=== PATIENT | male | born 1950 | race Caucasian/White ===

== ENCOUNTER 2020-11-15 23:01 | Emergency (ER) | payer MEDICARE ==
[2020-11-16] MEDS ORDERED: BACTRIM DS1 TAB PO (00:51)
[2020-11-16 01:00] LABS: HEMATOCRIT 37.7 % (39.0-50.0); IMMATURE GRANULOCYTES 0.4 % (0.0-5.0); MEAN CELL VOLUME 87.3 fL CALC (80.0-100.0); MEAN CORPUSCULAR HGB 27.8 pG CALC (26.0-32.0); MEAN CORPUSCULAR HGB CONC 31.8 g/dL CAL (32.0-36.0); NEUT# 6.29 thou/uL (1.82-7.42); RED BLOOD COUNT 4.32 mill/uL (4.70-6.10); RED CELL DISTRI WIDTH 14.6 % (11.5-15.5)
[2020-11-16 01:20] LABS: ALBUMIN 4.3 g/dL (3.2-5.0); ALKALINE PHOSPHATASE 262 u/l (38-126); ANION GAP 15 (6-22 (CALC)); BILIRUBIN, TOTAL 0.7 mg/dL (0.0-1.4); BUN 9 mg/dL (8-23); BUN/CREATININE RATIO 13 (12-20 (CALC)); CARBON DIOXIDE 27 mmol/l (22-30); CHLORIDE 95 mmol/l (95-108); CREATININE 0.7 mg/dL (0.7-1.3); GFR > 60 ML/MIN (>=60 (CALC)); GFR FOR AFR.AMER. > 60 ML/MIN (>=60 (CALC)); POTASSIUM 4.5 mmol/l (3.5-5.1); SGOT/AST 48 u/l (19-48); SODIUM 131 mmol/l (137-146); TOTAL PROTEIN 7.6 g/dL (6.3-8.2)
[2020-11-16 03:24] VITALS: BP 118/62
--- NOTE | 2020-11-17 10:05 | NUR ---
Preliminary blood culture results of 1/4 bottles growing gram positive cocci called to Dr Martinez. Probable contaminant. No new orders at this time. Will follow up with final results tomorrow.
--- NOTE | 2020-11-20 13:33 | NUR ---
FINAL BLOOD CULTURE RESULTS CALLED TO . / VIALS GROWING STAPH EPI. NO TREATMENT NEEDED.
== END 2020-11-16 03:37 | disposition home or self-care (01) ==
LOC: ED 23:01
PROVIDERS: Emergency Medicine
PROC: 0H96XZZ Drainage of Back Skin, External Approach (ICD-10-PCS; principal; 2020-11-16)
DX: L02.212 Cutaneous abscess of back [any part, except buttock and flank] (principal); I10 Essential (primary) hypertension; Z87.820 Personal history of traumatic brain injury

== ENCOUNTER 2021-12-04 07:03 | Observation (INO) | payer MEDICARE ==
[~2021-12-04] VITALS: Ht 182.9 cm; Wt 132.0 kg
[2021-12-04] VITALS (27 sets, daily range): BP systolic 62–148; BP diastolic 36–69
[~2021-12-04 07:03] MED LIST: ASPIRIN81 MG PO; BACTRIM DS1 TAB PO; FUROSEMIDE20 MG PO; KEFLEX500 MG PO; LEVOTHYROXIN88 MC1 PO; LIPITOR20 M1 PO; LISINOPRIL10 MG PO; METFORMIN500 M2 PO; METOPROL TAR25 MG PO; MIRTAZAPINE15 MG PO; NEURONTIN400 MG PO; QUETIAPINE FUM100 MG PO; QUETIAPINE FUM300 MG PO; TRILEPTAL150 MG PO
--- NOTE | 2021-12-04 07:25 | NUR ---
PATIENT ROOMED WITH ASSISTANCE FROM VEHICLE AND INTO A WHEELCHAIR TO ROOM. UNCOMFORTABLE BUT NOT IN ACUTE DISTRESS. CONNECTED TO MONITOR. PROVIDER NOTIFIED OF PATIENT STATUS.
[2021-12-04 07:33] LABS: HEMATOCRIT 38.4 % (39.0-50.0); IMMATURE GRANULOCYTES 0.8 % (0.0-5.0); MEAN CELL VOLUME 92.3 fL CALC (80.0-100.0); MEAN CORPUSCULAR HGB 28.8 pG CALC (26.0-32.0); MEAN CORPUSCULAR HGB CONC 31.3 g/dL CAL (32.0-36.0); NEUT# 12.38 thou/uL (1.82-7.42); RED BLOOD COUNT 4.16 mill/uL (4.70-6.10); RED CELL DISTRI WIDTH 14.8 % (11.5-15.5)
--- NOTE | 2021-12-04 08:00 | NUR ---
Reassessment of patient completed. No distress noted.
[2021-12-04 08:20] LABS: ALBUMIN 3.9 g/dL (3.2-5.0); BILIRUBIN, TOTAL 0.8 mg/dL (0.0-1.4); CREATININE 2.4 mg/dL (0.7-1.3); POTASSIUM 4.5 mmol/l (3.5-5.1); TOTAL PROTEIN 7.4 g/dL (6.3-8.2)
[2021-12-04 08:54] LABS: URINE BILIRUBIN - DIPSTICK NEGATIVE (NEGATIVE); URINE BLOOD DIPSTICK TRACE-INTACT (NEGATIVE); URINE COLOR YELLOW; URINE GLUCOSE - DIPSTICK NEGATIVE (NEGATIVE); URINE KETONE NEGATIVE (NEGATIVE); URINE PH 5.5 (4.5-8.0); URINE PROTEIN - DIPSTICK TRACE mg/dL (NEG-TRACE); URINE SPECIFIC GRAVITY >=1.030; URINE UROBILINOGEN - DIPSTICK 0.2 E.U./dL (0.2)
[2021-12-04 08:55] LABS: URINE LEUK ESTERASE SMALL (NEGATIVE); URINE NITRITE - DIPSTICK NEGATIVE (Negative)
[2021-12-04 09:00] LABS: URINE BACTERIA MANY hpf; URINE RBC 0-2 RBC/hpf (0-5); URINE WBC 50-100 WBC/hpf (0-5)
--- NOTE | 2021-12-04 09:00 | NUR ---
Reassessment of patient completed. No distress noted.
--- NOTE | 2021-12-04 10:10 | NUR ---
PT BROUGHT TO ROOM 273, REPORT GIVEN TO RN AT BEDSIDE AT THIS TIME
[2021-12-04] MEDS ORDERED: FAMOTIDINE20 M1 PO (11:45)
--- NOTE | 2021-12-04 20:40 | NUR ---
PATIENT ALERT AND ABLE TO MAKE NEEDS KNOWN. ASSESSMENT COMPLETE. NO COMPLAINTS OF PAIN VOICED. REQUESTED BREATHING TREATMENT. WILL PAGE RT. BED REMAINS IN LOW POSITION. CALL LIGHT AND BELONGINGS WITHIN REACH.
--- NOTE | 2021-12-04 20:57 | NUR ---
PAGED RT THAT PATIENT WOULD LIKE PRN BELLA BOLES.
--- NOTE | 2021-12-04 21:35 | NUR ---
SPOKE WITH WOOD GRINDER OPERATOR PROVIDER ABOUT PATIENTS STATUS. ORDERS TO BE UPDATED BY PROVIDER IN [facility].
[2021-12-05] VITALS (7 sets, daily range): BP systolic 110–140; BP diastolic 49–70
--- NOTE | 2021-12-05 00:15 | NUR ---
PATIENT SITTING UP IN BED WATCHING TV. NO COMPLAINTS VOICED. NO SIGNS OF DISTRESS NOTED. BP CHECKED MANUALLY TWICE LAST ONE READING 110/60. OXYGEN APPLIED VIA NC 2L BY RT WHEN IN ROOM GIVING BREATHING TX. BED REMAINS IN LOW POSITION. CALL LIGHT IN REACH.
--- NOTE | 2021-12-05 04:30 | NUR ---
PATIENT RESTING IN BED. NO DISTRESS NOTED. NO COMPLAINTS VOICED. O2 REMAINS AT 2L VIA NC. BP REMAINS STABLE AT THIS TIME ALONG WITH OTHER VS. CALL LIGHT AND BELONGINGS REMAIN IN PATIENTS REACH.
[2021-12-05 05:55] LABS: HEMATOCRIT 35.8 % (39.0-50.0); HEMOGLOBIN 11.1 g/dl (14.0-18.0); MEAN CELL VOLUME 93.5 fL CALC (80.0-100.0); RED BLOOD COUNT 3.83 mill/uL (4.70-6.10); RED CELL DISTRI WIDTH 14.8 % (11.5-15.5)
[2021-12-05 06:13] LABS: BUN 18 mg/dL (8-23); CHLORIDE 101 mmol/l (95-108); MAGNESIUM 1.7 mg/dL (1.6-2.3); POTASSIUM 4.9 mmol/l (3.5-5.1); SODIUM 135 mmol/l (137-146)
[2021-12-05 06:26] LABS: BUN/CREATININE RATIO 16 (12-20 (CALC)); CREATININE 1.1 mg/dL (0.7-1.3); GFR > 60 ML/MIN (>=60 (CALC)); GFR FOR AFR.AMER. > 60 ML/MIN (>=60 (CALC))
[2021-12-05 06:27] LABS: ANION GAP 9 (6-22 (CALC)); CARBON DIOXIDE 30 mmol/l (22-30)
--- NOTE | 2021-12-05 08:00 | NUR ---
GOT REPORT FROM SEROLOGIST NURSE. PATIENT IS AWAKE AND ALLOWED ME TO DO ASSESSMENT. PATIENT IS AOX3, DENIES ANY CHEST PAIN OR SHORTNESS OF BREATH AT THIS TIME. PATIENT STATES THAT HE WAS UNABLE TO SLEEP LAST NIGHT AND JUST FEELS OVER TIRED RIGHT NOW. PATIENT SPOUSE AT BEDSIDE. NO QUESTIONS OR CONCERNS AT THIS TIME.
--- NOTE | 2021-12-05 09:47 | NUR ---
Pt seen this am for treatment. He was in BR with rollator and his , no [address], on sitting 02sats 77%, 02 replace with sat up to 95 with rest. Ambulation in [address] 2 x 80' with 2L 02. 02sat to 88% and recovered back to 96% after resting. No LOB noted and gait pattern was good. Sit to stand without use of hand, sitting required verbal cues to reach back to surface. Pt transferred to w/c with SBA. Speech therapy in to take pt for swallow study. BP136/52 to 150/72, HR 96 to 103. Time spent with pt 30 min A- Pt resp desat without [address] SBA/CGA with mobility. [facility] at 17 HH P- Will continue to follow to increase resp status with mobility.
--- NOTE | 2021-12-05 11:28 | NUR ---
SPEECH PATHOLOGY-- PT SEEN FOR F/U S/P MBSS. PT EDUCATED ON DIRECT FINDINGS. HE EXPRESSED UNDERSTANDING OF CURRENT DEFICITS AND THE MILD DYSPHAGIA HE EXPERIENCES. PT EDUCATED ON THE NEED FOR IMPROVED ORAL CARE TO REDUCE RISK OF BACTERIA GROWTH. PT INSTRUCTED TO COMPLETE ORAL CARE 2X/DAY, REMAIN UPRIGHT AT A TABLE DURING MEALS AND REMAIN UPRIGHT FOLLOWING MEALS FOR 39 MINUTES TO REDUCE RISK OF REFLUX.
--- NOTE | 2021-12-05 12:00 | NUR ---
PATIENT IS AOX3, HE IS UP IN BEDSIDE CHAIR. PATIENT DENIES ANY DISTRESS OR DISCOMFORT AT THIS TIME.
--- NOTE | 2021-12-05 16:00 | NUR ---
PATIENT IS IN BED WATCHING TV. PATIENT IS AOX3, DENIES ANY ISSUES AT THIS TIME.
--- NOTE | 2021-12-05 23:00 | NUR ---
PATIENT RESTING IN BED WITH O2 VIA NASAL CANNULA IN PLACE AT 2LPM. MEDICATED FOR SLEEP WITH SONATA 5MG PO. TELE MONITOR IN PLACE. SAFETY PRECAUTIONS RFEINFORCED. CALL LIGHT IN REACH. WILL CONT TO MONITOR.
[2021-12-06] VITALS: BP 94/54
--- NOTE | 2021-12-06 | NUR ---
RECIEVED CALL FROM ER TO CHECK TELE LEADS AND RESPONDED TO THE ROOM TO FIND THE PATIENT WITH LEADS OFF AND PATIENT CONFUSED. LEADS WERE APPLIED AND PATIENT REORIENTED TO PLACE AND TIME. O2 WAS REAPPLIED AND VS WERE TAKEN. ASSISTED BACK INTO BED AND BED ALARM PLACED ON FOR PATIENT SAFETY. CALL LIGHT IN REACH. WILL CONT TO MONITOR.
[2021-12-06 03:59] VITALS: BP 106/76
--- NOTE | 2021-12-06 04:30 | NUR ---
PATIENT FOUND WITH O2 OFF AND REAPPLIED AT 2LPM. PATIENT IS RESTLESS THRU THE NIGHT. TELE MONITOR IN PLACE-LAST READING SR-86. CALL LIGHT IN REACH. WILL CONT TO MONITOR.
[2021-12-06 06:13] LABS: HEMATOCRIT 36.5 % (39.0-50.0); HEMOGLOBIN 11.2 g/dl (14.0-18.0); IMMATURE GRANULOCYTES 0.4 % (0.0-5.0); MEAN CELL VOLUME 92.9 fL CALC (80.0-100.0); MEAN CORPUSCULAR HGB 28.5 pG CALC (26.0-32.0); MEAN CORPUSCULAR HGB CONC 30.7 g/dL CAL (32.0-36.0); NEUT# 5.06 thou/uL (1.82-7.42); RED BLOOD COUNT 3.93 mill/uL (4.70-6.10)
[2021-12-06 06:23] LABS: ALBUMIN 3.5 g/dL (3.2-5.0); ANION GAP 14 (6-22 (CALC)); BILIRUBIN, TOTAL 0.6 mg/dL (0.0-1.4); BUN 13 mg/dL (8-23); BUN/CREATININE RATIO 14 (12-20 (CALC)); CARBON DIOXIDE 30 mmol/l (22-30); CHLORIDE 98 mmol/l (95-108); CREATININE 0.9 mg/dL (0.7-1.3); GFR > 60 ML/MIN (>=60 (CALC)); GFR FOR AFR.AMER. > 60 ML/MIN (>=60 (CALC)); MAGNESIUM 1.6 mg/dL (1.6-2.3); POTASSIUM 4.2 mmol/l (3.5-5.1); SODIUM 138 mmol/l (137-146); TOTAL PROTEIN 6.5 g/dL (6.3-8.2)
[2021-12-06 06:34] LABS: ALKALINE PHOSPHATASE 248 u/l (38-126); SGOT/AST 103 u/l (19-48)
[2021-12-06 06:43] VITALS: BP 110/76
--- NOTE | 2021-12-06 08:00 | NUR ---
GOT REPORT FROM HOUSEKEEPING ROOM ATTENDANT NURSE. PATIENT ASSESSED AOX3, PATIENT IS "SUPER TIRED" HE ONLY SLEPT 1 HR LAST NIGHT. PATIENT STATES THAT HE IS NOT HAVING ANY TROUBLE BREATHING OR CHEST PAIN AT THIS TIME. PATIENT STATED THAT LAST NIGHT THEY ATTEMPTED TO COME OFF OF OXYGEN BUT HE WAS UNABLE TO TOLERATED. PATIENT IS CURRENTLY AT 2L NC AND O2 SAT IS 95%. PATIENT WILL LIKE TO BE LEFT ALONE FOR A WHILE TO BE ABLE TO SLEEP SOME. IS AT BEDSIDE. CALL LIGHT AND BEDSIDE TABLE WITHIN REACH. ADVISED TO CALL IF NEEDING ANYTHING.
--- NOTE | 2021-12-06 11:15 | NUR ---
Attempted treatment x 2 this am, he was off floor for test and then on returning stated he was just too tried. Pt in w/c offered to place in bed but he wanted to remain in chair.
--- NOTE | 2021-12-06 11:38 | NUR ---
Pt sitting in WC upon OT arrival with nursing present. Pt appeared lethargic reporting recieving only one hour of sleep night prior; nurse confirmed. Pt refused therapy session; will return at later time.
--- NOTE | 2021-12-06 12:00 | NUR ---
PATIENT IS SITTING IN WHEELCHAIR WATCHING TV. PATIENT STATES THAT HE IS MORE COMFORTABLE THERE THAN THE BED. IS JUST GOT BACK. PATIENT STATES THAT HE FEELS OVERLY TIRED. MD MADE AWARE. OTHER THAN THAT PATIENT STATES THAT HE IS DOING OK. CALL LIGHT AND BEDSIDE TABLE WITHIN REACH OF PATIENT. ADVISED TO CALL IF HE NEEDS ANYTHING.
[2021-12-06 14:08] VITALS: BP 109/58
--- NOTE | 2021-12-06 15:02 | NUR ---
SPEECH PATHOLOGY-- PT SEEN FOR F/U TO IDENTIFY APPROPRIATE CARRYOVER OF RECOMMENDATIONS TO REDUCE RISK OF ASPIRATION. PT WAS ABLE TO RECALL 3/4 ASPIRATION PRECAUTIONS AND ENVIRONMENTAL MODIFICATIONS TO IMPROVE SWALLOW SAFETY. PT TOLERATED MECHANICAL SOFT SOLIDS AND THIN LIQUIDS W/O S/S OF ASPIRATION.
--- NOTE | 2021-12-06 16:00 | NUR ---
PATIENT IS SLEEPING IN BED. FAMILY IS NO LONGER AT BEDSIDE. PATIENT BEATHING EVEN, NO SXS OF DISTRESS. CALL LIGHT AND BEDSIDE TABLE ARE WITHIN REACH OF PATIENT.
[2021-12-06 18:44] VITALS: BP 135/67
--- NOTE | 2021-12-06 20:00 | NUR ---
PATIENT SITTING UP IN BED WITH O2 VIA NASAL CANNULA IN PLACE AT 2LPM-O2 SAT OF 95%. AWAKE ALERT AND SLIGHT ANXIETY ASKING FOR PM MEDS AT THIS TIME-MEDICATIONS WERE GIVEN ORDERED. TELE MONITOR IN PLACE-LAST READING WAS SR-70'S. SALINE LOCK TO LAC INTACT-APPEARS HEALTHY AT THIS TIME. USING URINAL TO VOID-STRICT I&O AND DAILY WEIGHT. STATES THAT HE DID HAVE BM TODAY. ABD IS SOFT WITH ACTIVE BS. SAFETY PRECAUTIONS REINFORCED. CALL LIGHT IN REACH. WILL CONT TO MONITOR.
--- NOTE | 2021-12-06 23:46 | NUR ---
PATIENT RESTING IN BED WITH HOB ELEVATED. O2 VIA NASAL CANNULA IN PLACE. TELE MONITOR IN PLACE. EYES ARE CLOSED AND RESPS ARE EVEN AND UNLABORED. VOIDING IN URINAL AT BEDSIDE. CALL LIGHT IN REACH. WILL CONT TO MONITOR.
[2021-12-07] VITALS: BP 97/48
--- NOTE | 2021-12-07 04:23 | NUR ---
PATIENT RESTING IN BED AT THIS TIME WITH O2 VIA NASAL CANNULA IN PLACE. HOB ELEVATED. EYES CLOSED. RESPS EVEN AND UNLABORED. TELE MONITOR IN PLACE. CALL LIGHT IN REACH. WILL CONT TO ROBERT.
[2021-12-07 04:32] VITALS: BP 90/54
[2021-12-07 06:11] LABS: HEMATOCRIT 35.3 % (39.0-50.0); HEMOGLOBIN 11.3 g/dl (14.0-18.0); IMMATURE GRANULOCYTES 0.3 % (0.0-5.0); MEAN CELL VOLUME 91.5 fL CALC (80.0-100.0); MEAN CORPUSCULAR HGB 29.3 pG CALC (26.0-32.0); NEUT# 3.43 thou/uL (1.82-7.42); RED BLOOD COUNT 3.86 mill/uL (4.70-6.10); RED CELL DISTRI WIDTH 14.5 % (11.5-15.5)
[2021-12-07 06:29] LABS: ALBUMIN 3.4 g/dL (3.2-5.0); ALKALINE PHOSPHATASE 270 u/l (38-126); ANION GAP 16 (6-22 (CALC)); BILIRUBIN, TOTAL 0.4 mg/dL (0.0-1.4); BUN 12 mg/dL (8-23); BUN/CREATININE RATIO 13 (12-20 (CALC)); CARBON DIOXIDE 29 mmol/l (22-30); CHLORIDE 99 mmol/l (95-108); CREATININE 0.9 mg/dL (0.7-1.3); GFR > 60 ML/MIN (>=60 (CALC)); GFR FOR AFR.AMER. > 60 ML/MIN (>=60 (CALC)); MAGNESIUM 1.8 mg/dL (1.6-2.3); POTASSIUM 4.2 mmol/l (3.5-5.1); SGOT/AST 114 u/l (19-48); SODIUM 139 mmol/l (137-146); TOTAL PROTEIN 6.4 g/dL (6.3-8.2)
[2021-12-07 06:56] VITALS: BP 112/65
[2021-12-07 08:00] VITALS: BP 112/65
--- NOTE | 2021-12-07 08:00 | NUR ---
PATIENT AWAKE, ALERT, NO SIGNS OR SYMPTOMS OF DISTRESS NOTED OR VOICED.
[2021-12-07 10:29] VITALS: BP 125/62
--- NOTE | 2021-12-07 10:49 | NUR ---
SPEECH PATHOLOGY-- PT SEEN FOR F/U TO REVIEW SAFE SWALLOW PRECAUTIONS AND DIET MODIFICATIONS. PT CURRENTLY TOLERATING MECHANICAL SOFT SOLIDS AND THIN LIQUIDS W/O S/S OF ASPIRATION. BASED ON PT POSTURE, WAITER/WAITRESS TAKE OUT ENGAGED PT IN EDUCATION REGARDING THE IMPORTANCE OF POSTURING DURING MEALS TO REDUCE RISK OF ASPIRATION OR FATIGUE. PT WITH ADEQUATE UNDERSTANDING AND ADEQUATE RECALL OF PRESENTED RECOMMENDATIONS.
[2021-12-07] MEDS ORDERED: LEVAQUIN750 M1 PO (10:53)
--- NOTE | 2021-12-12 13:49 | NUR ---
Pneumonia post discharge follow up call completed today, 12/12/21. Pt. states he is making progress, but he has not bounced back this time as he has in the past. Pt. did have fever and chills for 3 days after discharge. He continues to use oxygen at home most of the time, maintaining sats of 90-96. Pt. finished antibiotics prescribed at discharge but contacted PCP for additional abx. He has been taking this medication and is beginning to feel better. Pt. saw PCP this week for follow up appt. Pt. was very pleased with the care he received and complimented both nurses and doctors. No qestions or concerns voiced by patient at this time.
== END 2021-12-07 12:14 | disposition home health service (06) ==
LOC: ED 07:03 → ED-I 08:37 → ED 08:59 → MS2 08:59
PROVIDERS: Family Medicine; Nurse Practitioner; ADMIT Internal Medicine; ATTEND Internal Medicine
PROC: 3E0234Z Introduction of Serum, Toxoid and Vaccine into Muscle, Percutaneous Approach (ICD-10-PCS; principal; 2021-12-05)
DX: J18.9 Pneumonia, unspecified organism (principal); I11.0 Hypertensive heart disease with heart failure; I50.33 Acute on chronic diastolic (congestive) heart failure; N17.9 Acute kidney failure, unspecified; R09.02 Hypoxemia; N39.0 Urinary tract infection, site not specified; E03.9 Hypothyroidism, unspecified; G47.33 Obstructive sleep apnea (adult) (pediatric); E78.5 Hyperlipidemia, unspecified; R73.03 Prediabetes; F31.9 Bipolar disorder, unspecified; B96.20 Unspecified Escherichia coli [E. coli] as the cause of diseases classified elsewhere; F17.290 Nicotine dependence, other tobacco product, uncomplicated; Z87.820 Personal history of traumatic brain injury; Z79.84 Long term (current) use of oral hypoglycemic drugs; Z23 Encounter for immunization; Z20.822 Contact with and (suspected) exposure to COVID-19
CPT/HCPCS: J3475